=== PATIENT | male | born 1990 | race African-American/Black ===

== ENCOUNTER 2017-06-20 00:19 | Observation (INO) | payer MEDICARE, MEDICAID ==
[2017-06-20 01:08] LABS: Alcohol 180 mg/dL (Less than 10); Anion Gap 12 mmol/L (10-20); BUN (Urea Nitrogen) 14 mg/dL (8.9-20.6); Calc. Creatinine Clearance 0 mL/min (70-130); Calcium 9.3 mg/dL (7.8-10.44); Carbon Dioxide 29 mmol/L (22-29); Chloride 106 mmol/L (98-107); Estimated GFR-MDRD Greater than 90; Glucose 92 mg/dL (70-105); Potassium 3.6 mmol/L (3.5-5.1); Sodium 143 mmol/L (136-145)
[2017-06-20] MEDS ORDERED: Adacel (T-DAP) 0.5 ML VIAL ONE (01:09)
[2017-06-20 02:32] LABS: #Eosinphils 0.2 thou/uL (0.0-0.7); #Lymphocytes 1.5 thou/uL (1.20-3.40); #Monocytes 0.5 thou/uL (0.11-0.59); #Neutrophils 2.5 thou/uL (1.40-6.50); %Basophils 0.6 % (0.0-1.0); %Lymphocytes 32.7 % (21.0-51.0); %Neutrophils 52.7 % (42.0-75.0); Hemoglobin 14.9 g/dL (14.0-18.0); Mean Corpuscular HGB CONC 33.8 g/dL (32.0-36.0); Mean Corpuscular Hemoglobin 30.8 pg (27.0-31.0); Mean Platelet Volume 8.8 fL (7.4-10.4); Platelet Count 163 thou/uL (130-400); RBC Distribution Width 13.4 % (11.5-14.5); Red Blood Cell (RBC) Count 4.84 mill/uL (4.70-6.10); White Blood Cell (WBC) Count 4.7 thou/uL (4.8-10.8)
[2017-06-20] MEDS ORDERED: Ibuprofen 800 MG TAB PO PRN (02:48)
[2017-06-20] MEDS ORDERED: traMADol HCl 50 MG TAB PO PRN ×2 (02:48)
[2017-06-20] MEDS ORDERED: Ondansetron HCl/PF 4 MG/2 ML Vial IVP PRN (02:58)
[2017-06-20] MEDS ORDERED: Ondansetron ODT 4 MG TAB PO PRN (02:58)
[2017-06-20] MEDS ORDERED: Dextrose 50% Abboject 50 ML SYRINGE SLOW IVP PRN (02:58)
[2017-06-20] MEDS ORDERED: Dextrose 5% in Water 1,000 ML IV PRN (02:58)
[2017-06-20] MEDS ORDERED: hydrALAZINE 20 MG/ML VIAL SLOW IVP PRN (02:58)
[2017-06-20] MEDS ORDERED: Acetaminophen 500 MG TAB PO SCH (03:00)
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
[2017-06-20 04:25] LABS: Anion Gap 12 mmol/L (10-20); BUN (Urea Nitrogen) 13 mg/dL (8.9-20.6); Calc. Creatinine Clearance 0 mL/min (70-130); Calcium 8.8 mg/dL (7.8-10.44); Carbon Dioxide 26 mmol/L (22-29); Chloride 108 mmol/L (98-107); Estimated GFR-MDRD Greater than 90; Glucose 102 mg/dL (70-105); Potassium 3.7 mmol/L (3.5-5.1); Sodium 142 mmol/L (136-145)
[2017-06-20 05:15] VITALS: BMI 21.7
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
[2017-06-20] MEDS: Sodium Chloride 0.9% 1,000 ML IV SCH ×2 (06:08→12:22)
[2017-06-20] MEDS: Acetaminophen 500 MG TAB PO SCH ×2 (06:09→12:46)
[2017-06-20 07:59] VITALS: TEMP 98.9
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
[2017-06-20] MEDS ORDERED: Famotidine 20 MG TAB PO SCH (09:00)
[2017-06-20 10:32] LABS: Bilirubin Negative (Negative); Blood, Urine Negative (Negative); Clarity CLEAR (Clear); Glucose, Urine (Dipstick) Negative (Negative); Leukocyte Negative (Negative); Nitrite Negative (Negative); Protein, Urine (Dipstick) Negative (Neg-Trace); Specific Gravity, Urine 1.023 (1.002-1.036)
[2017-06-20 10:35] LABS: Bacteria/HPF None Seen HPF (None Seen); Hyaline Casts/LPF 0-3 HYALINE CAST LPF (0-3 Hyaline); RBC/HPF 0-3 HPF (0-3); Squamous Epithelial None Seen HPF (0-3); WBC/HPF 0-3 HPF (0-3)
[2017-06-20 12:49] VITALS: BP 110/71
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
== END 2017-06-20 14:15 | disposition home or self-care (01) ==
LOC: ERS 00:19 → IMCU/EMU 02:58
PROVIDERS: ADMIT Surgery; ATTEND Surgery
DX: S06.0X9A Concussion with loss of consciousness of unspecified duration, initial encounter (principal); F10.129 Alcohol abuse with intoxication, unspecified; G89.11 Acute pain due to trauma; F20.9 Schizophrenia, unspecified; F31.9 Bipolar disorder, unspecified; F17.210 Nicotine dependence, cigarettes, uncomplicated; F14.11 Cocaine abuse, in remission; F15.11 Other stimulant abuse, in remission; F12.11 Cannabis abuse, in remission; F19.11 Other psychoactive substance abuse, in remission; J45.909 Unspecified asthma, uncomplicated; Z79.899 Other long term (current) drug therapy; Y04.2XXA Assault by strike against or bumped into by another person, initial encounter; W19.XXXA Unspecified fall, initial encounter
CPT/HCPCS: 70450; 72125; 80048 ×2; 80307; 81001; 85025; 90471; 90715; 96360; 96361; 99285; G0378; 36415; G0390

== ENCOUNTER 2019-04-30 11:06 | Emergency (ER) | payer MEDICAID, MEDICARE ==
[2019-04-30] MEDS ORDERED: Ondansetron PF 4 MG/2 ML Vial ONE (11:29)
[2019-04-30 11:44] LABS: #Eosinphils 0.1 thou/uL (0.0-0.7); #Lymphocytes 1.6 thou/uL (1.20-3.40); #Monocytes 0.4 thou/uL (0.11-0.59); #Neutrophils 2.4 thou/uL (1.40-6.50); %Basophils 0.9 % (0.0-1.0); %Eosinophils 2.3 % (0.0-10.0); %Lymphocytes 34.9 % (21.0-51.0); %Monocytes 9.4 % (0.0-10.0); %Neutrophils 52.5 % (42.0-75.0); Hemoglobin 14.5 g/dL (14.0-18.0); Mean Corpuscular HGB CONC 33.1 g/dL (32.0-36.0); Mean Corpuscular Hemoglobin 30.2 pg (27.0-31.0); Mean Corpuscular Volume 91.1 fL (78.0-98.0); Mean Platelet Volume 7.9 fL (7.4-10.4); Platelet Count 209 thou/uL (130-400); RBC Distribution Width 12.2 % (11.5-14.5); Red Blood Cell (RBC) Count 4.81 mill/uL (4.70-6.10); White Blood Cell (WBC) Count 4.6 thou/uL (4.8-10.8)
--- NOTE | 2019-04-30 11:52 | RAD ---
EXAM: Chest one view: HISTORY: Altered mental status COMPARISON: None FINDINGS: Heart size: Within normal limits. Lungs: Clear of acute process. No evidence for confluent pneumonia, pleural effusion, acute edema, or pneumothorax, or other signifi cant acute process. IMPRESSION: No significant acute intrathoracic disease.
[2019-04-30 12:04] LABS: Acetaminophen Less than 6.0 mcg/mL (10.0-30.0); Alcohol Less than 10 mg/dL (Less than 10); CK (CPK) 290 U/L (30-200); Salicylate Less than 8.0 mg/dL (15.0-30.0)
[2019-04-30 12:06] LABS: ALT (SGPT) 17 U/L (8-55); AST (SGOT) 20 U/L (5-34); Albumin 4.6 g/dL (3.5-5.0); Alkaline Phosphatase 64 U/L (40-110); Anion Gap 11 mmol/L (10-20); BUN (Urea Nitrogen) 13 mg/dL (8.9-20.6); Bilirubin, Total 0.5 mg/dL (0.2-1.2); Calc. Creatinine Clearance 0 mL/min (70-130); Calcium 9.5 mg/dL (7.8-10.44); Carbon Dioxide 27 mmol/L (22-29); Chloride 105 mmol/L (98-107); Estimated GFR-MDRD Greater than 90; Glucose 88 mg/dL (70-105); Protein, Total 7.6 g/dL (6.0-8.3); Sodium 139 mmol/L (136-145)
[2019-04-30 12:57] LABS: Bilirubin Negative (Negative); Blood, Urine Negative (Negative); Clarity Clear (Clear); Glucose, Urine (Dipstick) Normal (Negative); Leukocyte Negative Leu/uL (Negative); Nitrite Negative (Negative); Protein, Urine (Dipstick) Negative (Neg-Trace)
[2019-04-30 13:08] LABS: Amphetamine Not Detected (NotDetected); Barbiturates Screen Not Detected (NotDetected); Benzodiazepine Screen Not Detected (NotDetected); Cocaine Metabolite Screen Not Detected (NotDetected); Medtox Control Line Valid? VALID (VALID); Medtox Reader # READER 1; Methadone Not Detected (NotDetected); Methamphetamine Not Detected (NotDetected); Opiate Screen Not Detected (NotDetected); Oxycodone Screen Not Detected (NotDetected); Phencyclidine (PCP) Not Detected (NotDetected); THC/Cannabinoid Screen Not Detected (NotDetected); Tricyclic Screen Not Detected (NotDetected)
== END 2019-04-30 15:35 | disposition home or self-care (01) ==
LOC: ERS 11:06
DX: F15.10 Other stimulant abuse, uncomplicated (principal); F14.10 Cocaine abuse, uncomplicated; F32.9 Major depressive disorder, single episode, unspecified; J45.909 Unspecified asthma, uncomplicated; F20.9 Schizophrenia, unspecified; F17.210 Nicotine dependence, cigarettes, uncomplicated
CPT/HCPCS: 71045; 80053; 80306; 80307; 81003; 82550; 84443; 85025; 93005; 96361; 96374; J2405

== ENCOUNTER 2019-09-26 18:07 | Emergency (ER) | payer MEDICARE | END 2019-09-26 20:15 | disposition home or self-care (01) | LOC: ERS 18:07 | DX: F10.129 Alcohol abuse with intoxication, unspecified (principal); F20.9 Schizophrenia, unspecified; F31.9 Bipolar disorder, unspecified; J45.909 Unspecified asthma, uncomplicated; F17.210 Nicotine dependence, cigarettes, uncomplicated | CPT/HCPCS: 96360 ==

== ENCOUNTER 2020-08-28 10:02 | Emergency (ER) | payer MEDICARE ==
[2020-08-28] MEDS ORDERED: diphenhydrAMINE 25 MG CAP ONE (11:39)
== END 2020-08-28 11:54 | disposition home or self-care (01) ==
LOC: ERS 10:02
DX: S90.466A Insect bite (nonvenomous), unspecified lesser toe(s), initial encounter (principal); J45.909 Unspecified asthma, uncomplicated; F17.210 Nicotine dependence, cigarettes, uncomplicated; W57.XXXA Bitten or stung by nonvenomous insect and other nonvenomous arthropods, initial encounter
CPT/HCPCS: 99282; Q0163

== ENCOUNTER 2020-11-08 10:10 | Emergency (ER) | payer MEDICARE | END 2020-11-08 10:45 | disposition home or self-care (01) | LOC: ERS 10:10 | DX: T40.7X1A Poisoning by cannabis (derivatives), accidental (unintentional), initial encounter (principal); J45.909 Unspecified asthma, uncomplicated; F17.210 Nicotine dependence, cigarettes, uncomplicated | CPT/HCPCS: 99284 ==

== ENCOUNTER 2020-11-13 13:31 | Emergency (ER) | payer MEDICARE | END 2020-11-13 17:23 | disposition left against medical advice (07) | LOC: ERS 13:31 → EEVIPCON 13:31 → ERS 17:23 | DX: S02.40EA Zygomatic fracture, right side, initial encounter for closed fracture (principal); J45.909 Unspecified asthma, uncomplicated; F17.210 Nicotine dependence, cigarettes, uncomplicated; W22.8XXA Striking against or struck by other objects, initial encounter | CPT/HCPCS: 70450 ==

== ENCOUNTER 2020-12-21 23:50 | Emergency (ER) | payer MEDICARE | END 2020-12-22 00:15 | disposition home or self-care (01) | LOC: ERS 23:50 | DX: S00.33XA Contusion of nose, initial encounter (principal); F15.10 Other stimulant abuse, uncomplicated; J45.909 Unspecified asthma, uncomplicated; F17.210 Nicotine dependence, cigarettes, uncomplicated; W22.8XXA Striking against or struck by other objects, initial encounter | CPT/HCPCS: 99284 ==

== ENCOUNTER 2022-01-25 15:52 | Emergency (ER) | payer MEDICARE | END 2022-01-25 16:19 | LOC: ERS 15:52 | DX: F11.90 Opioid use, unspecified, uncomplicated (principal); J45.909 Unspecified asthma, uncomplicated; F17.210 Nicotine dependence, cigarettes, uncomplicated | CPT/HCPCS: 99283 ==

== ENCOUNTER 2023-08-12 02:13 | Emergency (ER) | payer MEDICARE | END 2023-08-12 04:22 | LOC: ERS 02:13 | DX: Z02.89 Encounter for other administrative examinations (principal); S09.90XA Unspecified injury of head, initial encounter; F17.210 Nicotine dependence, cigarettes, uncomplicated; Y04.2XXA Assault by strike against or bumped into by another person, initial encounter; Y93.89 Activity, other specified; Z55.6 Problems related to health literacy | CPT/HCPCS: 99282 ==

== ENCOUNTER 2024-01-27 13:56 | Emergency (ER) | payer MEDICARE ==
[2024-01-27] MEDS ORDERED: Lorazepam 2 MG/ML VIAL ONE (14:01)
[2024-01-27 14:54] LABS: Lipase 20 U/L (8-78)
[2024-01-27 14:56] LABS: Acetaminophen Less than 10 mcg/mL (Less than 10); Alcohol Less than 10.0 mg/dL (Less than 10); Salicylate Less than 8.0 mg/dL (Less than 8.0)
[2024-01-27 15:02] LABS: Troponin I Less than 0.010 ng/mL (< 0.028)
[2024-01-27 15:11] LABS: ALT (SGPT) 29 U/L (8-55); AST (SGOT) 69 U/L (5-34); Albumin 4.5 g/dL (3.5-5.0); Alkaline Phosphatase 57 U/L (40-110); Anion Gap 13 mmol/L (10-20); BUN (Urea Nitrogen) 28 mg/dL (8.9-20.6); Bilirubin, Total 0.3 mg/dL (0.2-1.2); Calc. Creatinine Clearance 0 mL/min (70-130); Carbon Dioxide 24 mmol/L (22-29); Chloride 108 mmol/L (98-107); Estimated GFR 65; Globulin 3.1 g/dL (2.4-3.5); Glucose 131 mg/dL (70-105); Potassium 4.3 mmol/L (3.5-5.1); Protein, Total 7.6 g/dL (6.0-8.3); Sodium 141 mmol/L (136-145)
[2024-01-27] MEDS ORDERED: Boostrix 0.5 ML (Tdap) VIAL (>/=7 yrs of age) ONE (16:01)
[2024-01-27 16:58] LABS: #Basophils Less than 0.03 10x3/uL (0.0-0.2); %Basophils 0.2 % (0.0-1.0); %Eosinophils 0.9 % (0.0-10.0); %Lymphocytes 18.9 % (21.0-51.0); %Monocytes 7.4 % (0.0-10.0); %Neutrophils 72.4 % (42.0-75.0); Hematocrit 39.3 % (42.0-52.0); Hemoglobin 12.7 g/dL (14.0-18.0); Mean Corpuscular HGB CONC 32.3 g/dL (32.0-36.0); Mean Corpuscular Hemoglobin 29.1 pg (27.0-31.0); Mean Corpuscular Volume 90.1 fL (78.0-98.0); Mean Platelet Volume 11.9 fL (7.4-10.4); Platelet Count 174 10x3/uL (130-400); RBC Distribution Width 14.5 % (11.5-14.5); Red Blood Cell (RBC) Count 4.36 mill/uL (4.70-6.10)
[2024-01-27] MEDS ORDERED: levETIRAcetam 500 MG (5 mL) VIAL ONE (17:33)
[2024-01-27 18:29] LABS: Amphetamine Detected (NotDetected); Barbiturates Screen Not Detected (NotDetected); Benzodiazepine Screen Not Detected (NotDetected); Cocaine Metabolite Screen Not Detected (NotDetected); Methadone Not Detected (NotDetected); Methamphetamine Detected (NotDetected); Opiate Screen Not Detected (NotDetected); Oxycodone Screen Not Detected (NotDetected); Phencyclidine (PCP) Not Detected (NotDetected); THC/Cannabinoid Screen Not Detected (NotDetected); Tricyclic Screen Not Detected (NotDetected)
[2024-01-27 18:34] LABS: Bacteria/HPF None Seen HPF (None Seen); Bilirubin Negative (Negative); Blood, Urine Negative (Negative); CAUTI Indications for Culture Alt mental st,lethar; Clarity Clear (Clear); Glucose, Urine (Dipstick) Normal (Negative); Ketone, Urine Negative (Negative); Leukocyte Negative Leu/uL (Negative); Nitrite Negative (Negative); Protein, Urine (Dipstick) 50 mg/dL (Neg-Trace); RBC/HPF 0-3 HPF (0-3); Squamous Epithelial 0-3 HPF (0-3); WBC/HPF 0-3 HPF (0-3)
[2024-01-27 18:35] LABS: Calcium Oxalate Crystals 1+ HPF (None Seen); Sperm/HPF 1+ HPF (None Seen)
[2024-01-27 18:37] LABS: Urine Culture Reflex No No
== END 2024-01-28 00:20 | disposition home or self-care (01) ==
LOC: ERS 13:56
DX: R56.9 Unspecified convulsions (principal); F17.210 Nicotine dependence, cigarettes, uncomplicated; S50.812A Abrasion of left forearm, initial encounter; R41.82 Altered mental status, unspecified
CPT/HCPCS: 70450; 71045; 80306; 80307; 81001; 82140; 82962; 83690; 84145; 84146; 84484; 90471; 90715; 93005; 94760; 96365; 96375; 99285; J1953; J2060; 36415; 36416; 80053; 84443; 85025